=== PATIENT | female | born 1940 | race Caucasian/White ===

== ENCOUNTER 2018-04-16 06:19 | Day surgery (SDC) | payer MEDICARE, OTHER ==
[2018-04-16] MEDS ORDERED: PROPOFOL 20 ML ×2 (08:34→09:14)
[2018-04-16] MEDS ORDERED: EPHEDrine 50 MG INJ (09:14)
== END 2018-04-16 11:50 | disposition home or self-care (01) ==
LOC: GIL 06:19
DX: K29.30 Chronic superficial gastritis without bleeding (principal); K64.8 Other hemorrhoids; K57.90 Diverticulosis of intestine, part unspecified, without perforation or abscess without bleeding; G30.9 Alzheimer's disease, unspecified; F02.80 Dementia in other diseases classified elsewhere, unspecified severity, without behavioral disturbance, psychotic disturbance, mood disturbance, and anxiety
CPT/HCPCS: 43239; 88305